=== PATIENT | female | born 2000 | race Caucasian/White ===

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

== ENCOUNTER 2021-01-19 11:35 | Emergency (ER) | payer MEDICAID ==
[~2021-01-19] VITALS: Ht 152.4 cm; Wt 72.7 kg
[~2021-01-19 11:35] MED LIST changes: +FOCALIN XR30 MG PO; +HYDROCODON-ACE1 EA10 PO; +IBUPROFEN600 MG PO; +MOTRIN600 MG
[2021-01-19 11:42] VITALS: BP 117/74; Ht 152.4 cm; Wt 72.7 kg
[2021-01-19] MEDS ORDERED: PROZAC20 MG PO (11:43)
[2021-01-19] MEDS ORDERED: BUSPAR10 MG PO (11:43)
[2021-01-19] MEDS ORDERED: ZOFRAN4 MG PO (11:44)
[2021-01-19] MEDS ORDERED: PRENAVITE1 TAB PO (11:44)
[2021-01-19] MEDS ORDERED: PHENERGAN25 M1 PO (11:44)
[2021-01-19 12:17] LABS: CALC OSMOLALITY 270 mosm/kg (275-300); CARBON DIOXIDE 22.2 mmol/L (21.0-32.0); CHLORIDE - SERUM 103 mmol/L (98-107); CREATININE - SERUM 0.6 mg/dL (0.6-1.3); GLUCOSE 87 mg/dL (74-106); POTASSIUM - SERUM 4.1 mmol/L (3.5-5.1); SODIUM 137 mmol/L (136-145); UREA NITROGEN 7 mg/dL (7-18); eGFR NON AFRICAN AMERICAN > 90 mL/min (90-120)
[2021-01-19 12:18] LABS: BASOPHILS 0.1 % (0-2); EOSINOPHILS 0.6 % (0-7); HEMATOCRIT 45.4 % (36.0-48.0); HEMOGLOBIN 15.7 g/dL (12-16); IMMATURE GRANULOCYTES 0.5 % (0-5); LYMPHOCYTE ABS# 0.55 10x3/uL (1.18-3.74); LYMPHOCYTES 6.8 % (15-50); MCH 30.4 pg (26.0-34.0); MCHC 34.6 g/dL (31.0-37.0); MCV 87.8 fL (80.0-100.0); MEAN PLATELET VOLUME 10.2 fL (7.4-10.4); MONOCYTES 3.2 % (2-11); NEUTROPHIL ABS# 7.16 10x3/uL (1.56-6.13); NEUTROPHILS 88.8 % (40-80); PLATELET COUNT 218 10x3/uL (130-400); RBC 5.17 10x6/uL (4.00-5.40); RDW 13.8 % (11.5-14.5); WBC 8.1 10x3/uL (4.8-10.8)
[2021-01-19 12:37] LABS: BACTERIA MODERATE HPF (NONE SEEN); BILIRUBIN NEGATIVE (NEGATIVE); KETONE MODERATE mg/dL (NEGATIVE); NITRITE NEGATIVE (NEGATIVE); SQUAMOUS EPITHELIAL 0-5 HPF (0-4); UROBILINOGEN NORMAL mg/dL (< 2); WHITE CELLS - URINE RARE HPF (0-4)
[2021-01-19 12:41] LABS: ALBUMIN 3.4 g/dL (3.4-5.0); ALKALINE PHOSPHATASE 75 U/L (30-120); ALT (SGPT) 16 U/L (10-68); BILIRUBIN - TOTAL 0.59 mg/dL (0.2-1.3); HCG - QUANTITATIVE (MATERNAL) 22165 mIU/mL; PROTEIN - SERUM 7.7 g/dL (6.4-8.2)
[2021-01-19 13:57] LABS: AMYLASE - SERUM 33 U/L (25-115); LIPASE 98 U/L (73-393)
== END 2021-01-19 15:04 | disposition home or self-care (01) ==
LOC: D.ER 11:35
PROVIDERS: Emergency Medicine
DX: O26.892 Other specified pregnancy related conditions, second trimester (principal); R11.2 Nausea with vomiting, unspecified; Z3A.15 15 weeks gestation of pregnancy